=== PATIENT | female | born 1975 | race Caucasian/White ===

== ENCOUNTER 2020-03-29 11:15 | Emergency (ER) | payer OTHER | END 2020-03-29 13:29 | disposition home or self-care (01) | LOC: JVIRT 11:15 | DX: Z11.52 Encounter for screening for COVID-19 (principal) | CPT/HCPCS: C9803; G2251-GT; Q3014-GT; U0003 ==

== ENCOUNTER 2021-01-03 09:12 | Emergency (ER) | payer OTHER ==
[2021-01-03 09:24] VITALS: BP 119/74; PULSE 74; TEMP 98.1; BMI 21.2
== END 2021-01-03 10:41 | disposition home or self-care (01) ==
LOC: JER 09:12
DX: J06.9 Acute upper respiratory infection, unspecified (principal); R05.9 Cough, unspecified; R09.81 Nasal congestion; Z11.52 Encounter for screening for COVID-19
CPT/HCPCS: 99283-25; C9803; U0003; U0005

== ENCOUNTER 2022-03-27 23:28 | Emergency (ER) | payer OTHER ==
[2022-03-27 23:43] VITALS: BP 145/92; PULSE 68; RESP 17; TEMP 97.6; BMI 23.0
[2022-03-28] MEDS ORDERED: LACTATED RINGERS SOLUTION 1000 ML INFUS.BAG IV ONE (00:57)
[2022-03-28] MEDS ORDERED: ACETAMINOPHEN 1000 MG/100 ML BAG IVPB ONE (00:57)
[2022-03-28] MEDS ORDERED: MAG HYDROX/AL HYDROX/SIMETH 30 ML UNIT-DOSE CUP PO ONE (00:57)
[2022-03-28] MEDS ORDERED: ACETAMINOPHEN 500 MG TABLET (FP) PO ONE (01:31)
[2022-03-28] MEDS ORDERED: MAG HYDROX/AL HYDROX/SIMETH 30 ML UNIT-DOSE CUP ONE (02:13)
[2022-03-28] MEDS ORDERED: ACETAMINOPHEN INJECTION 100 ML IVPB ONE (02:13)
[2022-03-28 02:35] LABS: URINE APPEARANCE CLEAR; URINE BILIRUBIN NEGATIVE (NEGATIVE); URINE COLOR DK YELLOW; URINE GLUCOSE (UA) NEGATIVE (NEGATIVE); URINE KETONE TRACE (NEGATIVE); URINE LEUK ESTERASE NEGATIVE (NEGATIVE); URINE NITRITE NEGATIVE (NEGATIVE); URINE PROTEIN NEGATIVE (NEGATIVE); URINE UROBILINOGEN 0.2 mg/dL (0.2-1.0)
[2022-03-28 02:38] LABS: HCG,QUALITATIVE URINE Negative
[2022-03-28 02:41] LABS: INR 1.06 (0.83-1.09); PROTHROMBIN TIME (PATIENT) 12.2 SEC (9.7-13.0)
[2022-03-28 02:44] LABS: ACTIVATED PTT 26.2 SECONDS (25.2-36.5)
[2022-03-28 02:45] LABS: CALCIUM 9.1 mg/dL (8.5-10.1)
[2022-03-28 02:46] LABS: ALBUMIN 3.8 g/dl (3.4-5.0); BASO % 0.3 % (0-2.0); BLOOD UREA NITROGEN 13.4 mg/dL (7-18); EOS % 0.5 % (0-4.5); HEMATOCRIT 36.9 % (32.4-45.2); HEMOGLOBIN 12.4 GM/dL (10.7-15.3); LYMPH % 5.8 % (8-40); MCH 31.4 pg (25.7-33.7); MCHC 33.5 g/dl (32.0-36.0); MEAN CELL VOLUME 93.6 fl (80-96); MEAN PLT VOLUME 8.9 fl (7.5-11.1); MONO % 4.3 % (3.8-10.2); NEUT % 89.1 % (42.8-82.8); PLATELET COUNT 254 10^3/uL (134-434); RBC 3.94 M/mm3 (3.60-5.2); RDW 13.4 % (11.6-15.6); WHITE BLOOD COUNT 10.4 K/mm3 (4.0-10.0)
[2022-03-28 02:50] LABS: BILIRUBIN,TOTAL 0.5 mg/dL (0.2-1); TOT PROT 7.3 g/dl (6.4-8.2)
[2022-03-28] MEDS ORDERED: SUCRALFATE 1 GM/10 ML UNIT DOSE CUPS PO ONE (03:19)
== END 2022-03-28 05:30 | disposition home or self-care (01) ==
LOC: JER 23:28
DX: R10.13 Epigastric pain (principal)
CPT/HCPCS: 0241U-QW; 36415; 71045-TC-FY; 80053; 81003; 83690; 84484; 84703; 85025; 85610; 85730; 87086; 93005; 93010; 99285-25